=== PATIENT | male | born 1955 | race Caucasian/White ===

== ENCOUNTER 2019-07-27 16:07 | Outpatient (CLI) | payer BC ==
--- NOTE | 2019-07-27 16:45 | ULT ---
Venous duplex sonogram right lower extremity HISTORY: Right leg pain and edema. FINDINGS: The right common femoral vein and greater saphenous junction were evaluated along with the femoral, deep femoral, popliteal, and posterior tibial veins. Good color and spectral Doppler flow and compression. Right popliteal vein partially effaced by a large circumscribed elongated but somewhat loculated very complex partially cystic mass that extends far into the central lower leg. It measures up to 25.2 cm length by 3.9 cm width. IMPRESSION : No sonographic evidence of DVT within the right lower extremity. Very large complex partially cystic mass of the popliteal fossa and calf. 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 MRI could be used for further characterization. Measures up to 25.2 cm length by 3.9 cm width. It extends from the popliteal fossa
== END 2019-07-27 16:08 | disposition home or self-care (01) ==
LOC: ULT 16:07
PROVIDERS: ATTEND Orthopaedic Surgery
DX: M79.661 Pain in right lower leg (principal); M25.561 Pain in right knee; M71.21 Synovial cyst of popliteal space [Baker], right knee

== ENCOUNTER 2022-12-26 08:00 | Outpatient (CLI) | payer MEDICARE, OTHER | END 2022-12-26 08:01 | disposition home or self-care (01) | LOC: NM 08:00 | PROVIDERS: ATTEND Psychiatry & Neurology Neurology | DX: R25.9 Unspecified abnormal involuntary movements (principal) | CPT/HCPCS: 78803; A9584 ×2 ==